=== PATIENT | male | born 1995 | race Caucasian/White ===

== ENCOUNTER 2021-02-26 07:48 | Day surgery (SDC) | payer OTHER ==
[2021-02-26] MEDS ORDERED: PERCOCET 5/325M1 TAB PO (10:53)
[2021-02-26 14:01] VITALS: BP 123/69
== END 2021-02-26 11:50 | disposition home or self-care (01) ==
LOC: ORM 07:48
PROVIDERS: ATTEND Surgery
DX: M79.5 Residual foreign body in soft tissue (principal); R20.0 Anesthesia of skin; F17.210 Nicotine dependence, cigarettes, uncomplicated